=== PATIENT | female | born 1975 | race Caucasian/White ===

== ENCOUNTER 2021-12-04 14:57 | Emergency (ER) | payer OTHER, SELFPAY ==
--- NOTE | ~2021-12-04 | CT_ITS ---
EXAMINATION: CT brain wo con DATE: 12/04/2021 17:50 INDICATION: Head injury. TECHNIQUE: Computed tomography (CT) of the head was performed without intravenous contrast. The mA wa s adjusted according to patient size. Iterative reconstruction technique was employed. The dose-lengt h product was 605.33 mGy-cm. COMPARISON: None FINDINGS: There is no intracranial hemorrhage, acute infarction, or abnormal intracranial mass lesion . The ventricles are normal in size. The orbits are normal. There is mucosal thickening in the parana montez sinuses. The mastoid air cells are normal. IMPRESSION: 1. Normal brain. Reviewed, dictated and finalized at location A. IMPRESSION: 1. Normal brain.
--- NOTE | ~2021-12-04 | CT_ITS ---
EXAMINATION: CTA neck DATE: 12/04/2021 17:59 INDICATION: Neck pain. Straight angulation. TECHNIQUE: Computed tomographic angiography (CTA) of the neck was performed with 100 mL Omnipaque-350 intravenous contrast. Automated exposure control and iterative reconstruction technique were employe d. The dose-length product was 566.77 mGy-cm. Maximum intensity projection 3D-reconstructions were cr eated by the technologist on a separate workstation. COMPARISON: None. FINDINGS: There is a right posterolateral tracheal diverticulum at the thoracic inlet. There is a 7 m m nodule in left thyroid lobe, likely not clinically significant. There is mucosal thickening in the paranasal sinuses. There is no significant stenosis of the vertebral arteries. There is no visible pl aque in the proximal internal carotid arteries. There is 0% stenosis of the proximal right internal c arotid artery relative to normal distal artery lumen diameter (NASCET criteria). There is 0% stenosis of the proximal left internal carotid artery relative to normal distal artery lumen diameter. There is extensive dental disease. There is severe cervical spondylosis. IMPRESSION: 1. 0% stenosis of the proximal internal carotid arteries relative to normal distal artery lumen diame ters (NASCET criteria). 2. Extensive dental disease. Reviewed, dictated and finalized at location A. IMPRESSION: 1. 0% stenosis of the proximal internal carotid arteries relative to normal dis sivan artery lumen diameters (NASCET criteria). 2. Extensive dental disease.
[2021-12-04] MEDS: ACETAMINOPHEN 325 MG TABLET 650 MG PO (16:55)
[2021-12-04 17:13] LABS: Basophils Absolute Auto 0.1 K/mm3 (0.0-0.1); Basophils Percent Auto 0.5 % (0.2-1.2); Eosinophils Absolute Auto 0.1 K/mm3 (0-0.3); Eosinophils Percent Auto 0.5 % (0-4.4); Hematocrit 40.5 % (37.0-47.0); Hemoglobin 13.4 g/dL (12.0-15.0); Immature Granulocyte Absolute 0.05 K/mm3 (0.00-0.031); Immature Granulocyte Percent A 0.3 % (0-0.5); Lymphocytes Absolute Auto 3.66 K/mm3 (0.9-3.2); Lymphocytes Percent Auto 24.2 % (18.3-44.2); Mean Corpuscular HGB Conc 33.1 g/dl (32-36); Mean Corpuscular Volume 93.8 fl (80-100); Monocytes Absolute Auto 1.1 K/mm3 (0.1-0.6); Monocytes Percent Auto 7.3 % (2.6-8.5); Neutrophils Absolute Auto 10.2 K/mm3 (1.3-6.7); Neutrophils Percent Auto 67.2 % (45.5-73.1); Platelet Count Result 505 k/mm3 (150-375); Red Blood Count 4.32 M/mm3 (4.2-5.4); White Blood Count 15.1 K/mm3 (4.5-10.0)
--- NOTE | 2021-12-04 17:16 | PC.NURSE ---
1714 Called Call for Help, Crisis answered and stated that there is no crisis staff available. Will notify fire alarm repairer.
[2021-12-04 17:21] LABS: INR 1.1; Prothrombin Time 13.4 Seconds (11.1-14.7)
[2021-12-04 17:22] LABS: Partial Thromboplastin Time 28.7 SECONDS (22.3-36.8)
[2021-12-04 17:24] LABS: Anion Gap 10 mmol/L (8-16); Blood Urea Nitrogen 13 mg/dL (7-17); Calcium 9.3 mg/dL (8.4-10.2); Carbon Dioxide 26 mmol/L (22-30); Chloride 104 mmol/L (98-107); Estimated CRCL calculation 70 ml/min; Estimated Glomerular Filt Rate > 60; Glucose 95 mg/dL (65-110); Potassium 4.3 mmol/L (3.4-5.0); Sodium 140 mmol/L (137-145)
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
[2021-12-04] MEDS: cefTRIAXone 1 GM VIAL 0.5 GM IM (20:09)
[2021-12-04] MEDS: LIDOCAINE HCL 1% PF 30 ML VIAL XX (20:10)
[2021-12-04] MEDS: metroNIDAZOLE 250 MG TABLET 500 MG PO (20:11)
[2021-12-04] MEDS: DOXYCYCLINE HYCLATE 100 MG TABLET PO (20:11)
[2021-12-04 21:45] VITALS: BP 107/69; PULSE 81; RESP 16; O2SAT 98
== END 2021-12-04 21:45 | disposition home or self-care (01) ==
PROVIDERS: Emergency Provider Emergency Medicine
DX: T74.21XA Adult sexual abuse, confirmed, initial encounter (principal); T71.9XXA Asphyxiation due to unspecified cause, initial encounter; F17.200 Nicotine dependence, unspecified, uncomplicated; Y07.03 Male partner, perpetrator of maltreatment and neglect; Y04.8XXA Assault by other bodily force, initial encounter
CPT/HCPCS: 36415; 70450; 70498; 80048; 85025; 85610; 85730; 87070; 87491; 87591; 87808; 96372; 99285; A9270; J0696; Q9967